=== PATIENT | female | born 1990 | race American Indian/Alaskan Native ===

== ENCOUNTER 2016-03-15 15:08 | Outpatient (CLI) | payer OTHER, MEDICAID ==
[2016-03-15 15:36] VITALS: BP 119/70
== END 2016-03-15 15:50 | disposition home or self-care (01) ==
LOC: TRG 15:08
PROVIDERS: ATTEND Obstetrics & Gynecology
DX: O77.9 Labor and delivery complicated by fetal stress, unspecified (principal); O47.9 False labor, unspecified; Z3A.00 Weeks of gestation of pregnancy not specified
CPT/HCPCS: 59025

== ENCOUNTER 2016-03-28 20:39 | Outpatient (CLI) | payer OTHER, MEDICAID ==
[2016-03-28] MEDS ORDERED: LACTATED RINGERS 500 ML IV ONE (21:22)
[2016-03-28 22:48] LABS: Bilirubin,Urine NEG (Negative); Blood,Urine NEG (Negative); Ketones,Urine 80 mg/dL (Negative); Leukocyte Esterase,Urine NEG (Negative); Mucus,Urine 1+ /HPF; Nitrite,Urine NEG (Negative); Protein,Urine <15 mg/dL mg/dL (Negative); Urobilinogen,Urine < 2.0 mg/dL (<2.0); WBC,Urine < 1.0 /HPF (0.0-6.0)
[2016-03-29 01:23] VITALS: BP 116/69
== END 2016-03-28 23:30 | disposition home or self-care (01) ==
LOC: TRG 20:39
PROVIDERS: ATTEND Obstetrics & Gynecology
DX: O47.9 False labor, unspecified (principal); Z3A.00 Weeks of gestation of pregnancy not specified
CPT/HCPCS: 81001